=== PATIENT | male | born 1940 | race Caucasian/White ===

== ENCOUNTER 2017-02-17 11:24 | Emergency (ER) | payer OTHER ==
[~2017-02-17] VITALS: Ht 154.9 cm; Wt 111.8 kg
[~2017-02-17 11:24] MED LIST: GEMF600T3 PO; SITA50 PO; [UNRECOGNIZED DRUG - REMARK]
[2017-02-17] MEDS ORDERED: LISI-661 PO (11:56)
[2017-02-17] MEDS ORDERED: GLIP5 PO (11:56)
[2017-02-17] MEDS ORDERED: MELO-273 PO (11:56)
[2017-02-17 11:57] LABS: GLUCOSE,POINT OF CARE 177 MG/DL (70-110)
[2017-02-17 14:13] LABS: BASOPHILS # (AUTO) 0.12 K/uL (0.00-0.20); BASOPHILS % (AUTO) 1.6 % (0.0-2.0); EOSINOPHILS # (AUTO) 0.11 K/uL (0.00-0.70); EOSINOPHILS % (AUTO) 1.48 % (1.0-6.0); HEMATOCRIT 42.6 % (41-53); LYMPHOCYTES # (AUTO) 2.1 K/uL (1.0-4.8); LYMPHOCYTES % (AUTO) 27.1 % (22.0-44.0); MEAN CORPUSCULAR HEMOGLOBIN 30.7 pg (26.0-34.0); MEAN CORPUSCULAR HGB CONC 32.9 G/dL (31.0-37.0); MEAN CORPUSCULAR VOLUME 93 fL (80-100); MONOCYTES # (AUTO) 0.6 K/uL (0.1-1.0); MONOCYTES % (AUTO) 8.1 % (2.0-9.0); NEUTROPHILS # (AUTO) 4.8 K/uL (1.8-7.7); NEUTROPHILS % (AUTO) 61.8 % (40.0-70.0); PLATELET COUNT (AUTO) 217 K/uL (150-450); RED BLOOD CELL COUNT(AUTO) 4.57 MIL/uL (4.50-5.90); RED CELL DISTRIBUTION WIDTH 14.2 % (11.5-14.5); WHITE BLOOD COUNT (AUTO) 7.7 K/uL (4.5-11.0)
[2017-02-17 14:25] LABS: PROTHROMBIN TIME 10.6 SEC (9.4-11.6)
[2017-02-17 14:30] LABS: CALCIUM, TOTAL 9.4 mg/dL (8.8-10.5); CREATININE 2.89 mg/dL (0.60-1.30); POTASSIUM 3.9 mmol/L (3.5-5.1)
[2017-02-17 14:35] LABS: ALBUMIN 4.3 g/dL (3.4-5.0); BILIRUBIN,TOTAL 0.8 mg/dL (0.1-1.0); TOTAL PROTEIN, SERUM 8.3 g/dL (6.4-8.2); URIC ACID 11.2 mg/dL (2.6-7.2)
[2017-02-17] MEDS ORDERED: ALLOPURINOL 100 MG TABLET PO ONE (16:00)
[2017-02-17] MEDS ORDERED: COLCHICINE 0.6 MG TABLET PO ONE (16:00)
[2017-02-17] MEDS ORDERED: KETOROLAC TROMETHAMINE 60 MG/2 ML VIAL IM ONE (16:00)
[2017-02-17] MEDS ORDERED: KETOROLAC TROMETHAMINE 30 MG/ML VIAL IM ONE (16:15)
[2017-02-17 16:37] VITALS: BP 147/75
== END 2017-02-17 16:56 | disposition home or self-care (01) ==
LOC: EMS 11:29
DX: M10.079 Idiopathic gout, unspecified ankle and foot (principal); E11.9 Type 2 diabetes mellitus without complications; I10 Essential (primary) hypertension
CPT/HCPCS: 36415; 80053; 82962; 84550; 85025; 85610; 85730; 93971; 96372; 99285; J1885 ×2

== ENCOUNTER → 2017-09-19 | Outpatient (CLI) | payer OTHER ==
[~2017-09-19] MED LIST changes: +GLIP5 PO; +LISI-661 PO; +MELO-107 PO; -[UNRECOGNIZED DRUG - REMARK]
== END | disposition home or self-care (01) ==
LOC: RADPV 10:47
PROVIDERS: ATTEND Family Medicine
DX: M17.12 Unilateral primary osteoarthritis, left knee (principal)

== ENCOUNTER 2017-10-16 08:54 | Emergency (ER) | payer OTHER ==
[~2017-10-16] VITALS: Ht 180.3 cm; Wt 109.1 kg
[2017-10-16 12:27] LABS: HEMATOCRIT 39.9 % (41-53); HEMOGLOBIN 13.3 g/dL (13.5-17.5); MEAN CORPUSCULAR HEMOGLOBIN 31.1 pg (26.0-34.0); MEAN CORPUSCULAR HGB CONC 33.4 G/dL (31.0-37.0); MEAN CORPUSCULAR VOLUME 93 fL (80-100); PLATELET COUNT (AUTO) 84 K/uL (150-450); RED BLOOD CELL COUNT(AUTO) 4.28 MIL/uL (4.50-5.90); RED CELL DISTRIBUTION WIDTH 14.1 % (11.5-14.5)
[2017-10-16 12:38] LABS: CALCIUM, TOTAL 8.8 mg/dL (8.8-10.5); CREATININE 5.43 mg/dL (0.60-1.30); POTASSIUM 3.9 mmol/L (3.5-5.1)
[2017-10-16 12:39] LABS: INR 1.2 (0.9-1.1); PROTHROMBIN TIME 12.6 SEC (9.4-11.6)
[2017-10-16 12:42] LABS: GLUCOSE,POINT OF CARE 177 MG/DL (70-110)
[2017-10-16 12:44] LABS: ALBUMIN 2.9 g/dL (3.4-5.0); BILIRUBIN,TOTAL 1.1 mg/dL (0.1-1.0); TOTAL PROTEIN, SERUM 7.5 g/dL (6.4-8.2)
[2017-10-16] MEDS ORDERED: SODIUM CHLORIDE 0.9% 1,000 ML IV ONE ×2 (12:45→16:00)
[2017-10-16] MEDS ORDERED: ONDANSETRON HCL 4 MG/2 ML VIAL IVP ONE (13:15)
[2017-10-16] MEDS ORDERED: MORPHINE SULFATE 4 MG/ML SYRINGE IVP ONE (13:15)
[2017-10-16] MEDS ORDERED: BARIUM SULFATE 0.1% SUSPENSION 450 ML BOTTLE PO ONE (13:15)
[2017-10-16 14:16] LABS: BAND NEUTROPHILS % (MANUAL) 25 % (1-5); LYMPHOCYTES % (MANUAL) 5 % (22-44); MONOCYTES % (MANUAL) 3 % (2-9); SEGMENTED NEUTROPHILS % 67 % (40-70)
[2017-10-16 16:20] LABS: APPEARANCE,URINE TURBID (CLEAR); BILIRUBIN,URINE NEGATIVE (NEGATIVE); GLUCOSE, URINE (UA) NEGATIVE (NEGATIVE); KETONES,URINE NEGATIVE (NEGATIVE); LEUKOCYTE ESTERASE ,URINE LARGE (NEGATIVE); NITRATE,URINE NEGATIVE (NEGATIVE); OCCULT BLOOD,URINE LARGE (NEGATIVE); PH,URINE 6.5 (5.0-8.0); PROTEIN,URINE SEE CONFIRM (NEGATIVE); UROBILINOGEN,URINE 0.2 mg/dL (<=1.0)
[2017-10-16 16:30] LABS: SULFOSALICYLIC ACID,URINE 3+ (Negative); WBC,URINE Full Field /HPF (0-5)
[2017-10-16 16:31] LABS: BACTERIA,URINE Many /HPF (None Seen)
[2017-10-16] MEDS ORDERED: CefTRIAXone 1 GM/DEXTROSE 50 ML IV ONE (16:45)
[2017-10-16 20:28] VITALS: BP 123/63
== END 2017-10-16 20:38 | disposition short-term general hospital (02) ==
LOC: EMS 08:56
DX: E86.0 Dehydration (principal); I12.9 Hypertensive chronic kidney disease with stage 1 through stage 4 chronic kidney disease, or unspecified chronic kidney disease; E11.22 Type 2 diabetes mellitus with diabetic chronic kidney disease; N18.9 Chronic kidney disease, unspecified; N17.9 Acute kidney failure, unspecified; N12 Tubulo-interstitial nephritis, not specified as acute or chronic
CPT/HCPCS: 36415; 74176; 76705; 80053; 81001; 82948; 82962; 83690; 84484; 85025; 85610; 87040; 87077; 87086; 87186; 93005; 96361; 96365; 96366; 96375; 99285; J0696; J2270; J2405

== ENCOUNTER 2019-02-25 11:22 | Emergency (ER) | payer MEDICARE, OTHER ==
[~2019-02-25] VITALS: Ht 180.3 cm; Wt 109.0 kg
[~2019-02-25 11:22] MED LIST changes: -GEMF600T3 PO; +GEMF600T5 PO
[2019-02-25 11:45] LABS: GLUCOSE,POINT OF CARE 242 MG/DL (70-110)
[2019-02-25] MEDS ORDERED: FURO40 PO (12:00)
[2019-02-25] MEDS ORDERED: ATOR40TA28 PO (12:00)
[2019-02-25] MEDS ORDERED: VITAD1000 PO (12:00)
[2019-02-25] MEDS ORDERED: PRAV40TA4 PO (12:00)
[2019-02-25] MEDS ORDERED: ASPI81 PO (12:00)
[2019-02-25] MEDS ORDERED: SODI650T PO (12:00)
[2019-02-25] MEDS ORDERED: AMLO1CAP11 PO (12:00)
[2019-02-25 13:51] LABS: BASOPHILS % (AUTO) 0.3 % (0.0-2.0); EOSINOPHILS % (AUTO) 0.3 % (1.0-6.0); HEMATOCRIT 34.1 % (41-53); HEMOGLOBIN 11.6 g/dL (13.5-17.5); LYMPHOCYTES # (AUTO) 1.5 K/uL (1.0-4.8); LYMPHOCYTES % (AUTO) 11.6 % (22.0-44.0); MEAN CORPUSCULAR HEMOGLOBIN 29.5 pg (26.0-34.0); MEAN CORPUSCULAR HGB CONC 34.1 G/dL (31.0-37.0); MEAN CORPUSCULAR VOLUME 87 fL (80-100); MONOCYTES # (AUTO) 0.6 K/uL (0.1-1.0); MONOCYTES % (AUTO) 4.3 % (2.0-9.0); NEUTROPHILS # (AUTO) 10.9 K/uL (1.8-7.7); NEUTROPHILS % (AUTO) 83.5 % (40.0-70.0); PLATELET COUNT (AUTO) 225 K/uL (150-450); RED BLOOD CELL COUNT(AUTO) 3.94 MIL/uL (4.50-5.90); RED CELL DISTRIBUTION WIDTH 13.7 % (11.5-14.5)
[2019-02-25 13:56] LABS: CALCIUM, TOTAL 8.9 mg/dL (8.8-10.5); CREATININE 3.11 mg/dL (0.60-1.30); POTASSIUM 4.3 mmol/L (3.5-5.1)
[2019-02-25] MEDS ORDERED: SODIUM CHLORIDE 0.9% 1,000 ML IV ONE (14:00)
[2019-02-25 14:01] LABS: ALBUMIN 3.5 g/dL (3.4-5.0); TOTAL PROTEIN, SERUM 8.4 g/dL (6.4-8.2)
[2019-02-25 14:03] LABS: LACTIC ACID 1.1 mmol/L (0.4-2.0)
[2019-02-25 16:36] LABS: APPEARANCE,URINE CLOUDY (CLEAR); BILIRUBIN,URINE NEGATIVE (NEGATIVE); GLUCOSE, URINE (UA) 100 mg/dL (NEGATIVE); KETONES,URINE NEGATIVE (NEGATIVE); LEUKOCYTE ESTERASE ,URINE SMALL (NEGATIVE); NITRATE,URINE NEGATIVE (NEGATIVE); OCCULT BLOOD,URINE MODERATE (NEGATIVE); PROTEIN,URINE SEE CONFIRM (NEGATIVE); UROBILINOGEN,URINE 0.2 mg/dL (<=1.0)
[2019-02-25 16:43] LABS: SULFOSALICYLIC ACID,URINE 3+ (Negative)
[2019-02-25 16:44] LABS: BACTERIA,URINE Many /HPF (None Seen); SQUAMOUS EPITHELIAL CELL,UR Few /LPF (None Seen)
[2019-02-25] MEDS ORDERED: LEVOFLOXACIN 500 MG TABLET PO ONE (18:15)
[2019-02-25 18:52] VITALS: BP 151/78
== END 2019-02-25 19:03 | disposition home or self-care (01) ==
LOC: EMS 11:24
DX: N39.0 Urinary tract infection, site not specified (principal); J40 Bronchitis, not specified as acute or chronic; E11.9 Type 2 diabetes mellitus without complications; I10 Essential (primary) hypertension; Z92.21 Personal history of antineoplastic chemotherapy; Z79.899 Other long term (current) drug therapy; Z79.82 Long term (current) use of aspirin; Z90.6 Acquired absence of other parts of urinary tract; Z85.51 Personal history of malignant neoplasm of bladder
CPT/HCPCS: 36415; 71046; 74176; 80053; 81001; 82962; 83605; 83690; 85025; 87077; 87086; 87186; 93005; 96360; 96361; 99284; J7030

== ENCOUNTER 2019-03-22 14:40 | Emergency (ER) | payer MEDICARE, OTHER ==
[~2019-03-22] VITALS: Ht 172.7 cm; Wt 81.8 kg
[~2019-03-22 14:40] MED LIST changes: +AMLO1CAP11 PO; +ASPI81 PO; +ATOR40TA28 PO; +FURO40 PO; -GEMF600T5 PO; -GLIP5 PO; -LISI-661 PO; -MELO-107 PO; +PRAV40TA4 PO; +SODI650T PO; +VITAD1000 PO
[2019-03-22 15:14] LABS: GLUCOSE,POINT OF CARE 167 MG/DL (70-110)
[2019-03-22] MEDS ORDERED: IBUPROFEN 800 MG TABLET PO ONE (15:45)
[2019-03-22 16:55] VITALS: BP 138/69
== END 2019-03-22 17:20 | disposition home or self-care (01) ==
LOC: EMS 14:43
DX: M10.9 Gout, unspecified (principal); E11.9 Type 2 diabetes mellitus without complications; I10 Essential (primary) hypertension; Z79.899 Other long term (current) drug therapy; Z79.82 Long term (current) use of aspirin; Z85.89 Personal history of malignant neoplasm of other organs and systems
CPT/HCPCS: 84550